=== PATIENT | male | born 1960 | race Caucasian/White ===

== ENCOUNTER → 2016-08-05 | Day surgery (SDC) | payer MEDICARE ==
[~2016-08-05] MED LIST: ACETAMINOPHEN/HYDROcodone 325 MG/5 MG TAB ONE; BUPIVACAINE/EPINEPHRINE 0.25% PF 30 ML VIAL ONE; KETOROLAC TROMETHAMINE 30 MG/ML (IVP) VIAL IV PUSH ONE; LACTATED RINGER'S 1,000 ML BAG IV ONE; LACTATED RINGER'S 1000 ML INJ 1,000 ML ONE; MEPERIDINE HCL 25 MG/ML VIAL ONE; MIDAZOLAM HCL 2 MG/2 ML VIAL ONE; NEOMYCIN/POLYMYXIN/BACITRACIN OINT 15 GM TUBE ONE; ONDA4TAB6 PO; ONDANSETRON HCL 4 MG/2 ML VIAL IV PUSH ONE; PROPOFOL 200 MG/20 ML AMP IV ONE; ceFAZolin 2 GM PREMIX 50 ML ONE
--- NOTE | 2016-08-05 12:57 | TN ---
cc: AYESHA LAM M.D. DATE OF SURGERY: 08/05/2016 PREOPERATIVE DIAGNOSIS Acutely symptomatic left inguinal hernia, asymptomatic umbilical hernia. POSTOPERATIVE DIAGNOSIS Acute left indirect inguinal hernia, left spermatic cord lipoma, umbilical hernia. PROCEDURE Laparoscopic repair left inguinal hernia with mesh, open repair umbilical hernia. SURGEON Dr. Ayesha Lam. ANESTHESIA General. INDICATIONS This is a pleasant 55-year-old gentleman who traveled down from [place] to help care for his mother who is going to have surgery soon, when lifting a case of water and a 12 pack of soda and twisting he developed acute left groin pain. He was seen in the office and recommendations were made for repair. Incidentally discovered umbilical hernia was encountered and he wished to have that fixed at the same time. INTRAOPERATIVE FINDINGS Left indirect inguinal hernia, left spermatic cord lipoma, umbilical hernia. ESTIMATED BLOOD LOSS Less than 20 mL. DESCRIPTION OF PROCEDURE IN DETAIL The patient was identified as Kwadwo Vaz. He was taken to the operating room and placed in the supine position. Sequential compression devices were placed on bilateral lower extremities. Following induction of adequate general anesthesia the patient's lower abdomen was prepped and draped in usual sterile fashion with Betadine. A time-out procedure was performed. Following completion of time-out procedure to everyone's satisfaction within the room 0.25% Marcaine with epinephrine was placed at each incision site. Infraumbilical small transverse incision was carried out with a scalpel and hemostasis was controlled with electrocautery. Dissection continued superiorly and posteriorly lifting the umbilical skin off herniated preperitoneal fatty tissue through the umbilical hernia defect. The fascia was cleared circumferentially with electrocautery. The anterior rectus fascia on the left side was identified, incised at its medial border with scalpel and a preperitoneal plane was developed with the surgeon's finger directed towards the pubic symphysis. With the patient in slight Trendelenburg position under direct laparoscopic view the preperitoneal dissecting balloon was inflated to a total of approximately 30 pumps which allowed for identification of the inferior epigastric vessels and the left side Marco Antonio's ligament. The balloon was desufflated, removed and the structural balloon trocar placed in the preperitoneal space, its balloon inflated with C02 insufflation until a level of 11 mmHg ensued. Two infraumbilical midline 5 mm trocars were placed in preperitoneal space under direct laparoscopic view after incision of skin with a scalpel. Attention was turned to identification of normal anatomic structures. Unfortunately with the balloon dissection the left inferior epigastric vessels had been pulled away from the anterior abdominal wall and were hanging down. This had to be managed throughout the case in order to be able to visualize the anatomy. This was performed, it took a little bit longer. He was fairly oozy throughout the case. No active hemorrhage from anywhere, just ooze. The Marco Antonio's ligament and pubic symphysis was identified. The blunt dissection lateral and posterior to the spermatic cord was able to be performed with the blunt graspers. The anteromedial surface of the spermatic cord was examined. There is an obvious indirect inguinal hernia sac and edema associated with it. It was reduced to the base of the spermatic cord. In doing so a small defect in the hernia sac was closed with 0-PDS Endoloop. Posterolaterally a spermatic cord lipoma was identified and withdrawn from the inguinal canal into the preperitoneal space using blunt graspers. A 4 x 6 inch piece of atrium ProLite mesh was then cut with anterolateral slit placed surrounding the spermatic cord and tacked in position with the pro-tack device. A single tack was used to approximate the anterolateral slit lateral to the inferior gastric vessels. Two tacks were placed into the anterior Marco Antonio's ligament, one tack medial superior, one tack lateral superior of mesh. A 2 x 6 inch piece of the mesh was then placed overlying the anterolateral slit and held in position with a single tack superolaterally, a tack inferior medially on the anterior border of Marco Antonio's ligament, one tack superior medially. Photographs were taken of completed repair. Remaining local anesthetic was placed in preperitoneal space. Trocars were removed under direct visualization and during desufflation the grasper was used to hold the mesh down against the abdominal wall inferior laterally so that the peritoneum and preperitoneal fatty tissue would lay on top of the mesh. There was no evidence of bleeding from trocar sites. The preperitoneal space was desufflated through the infraumbilical port, was then removed. The anterior rectus fascial incision was closed with running 2-0 Vicryl suture. The umbilical hernia defect was closed with interrupted inverted 0 Prolene sutures. The umbilicus was reformed with 2-0 Vicryl. The wounds were irrigated with saline. There was no evidence of bleeding. The skin incisions were closed with 4-0 Monocryl subcuticular sutures. Dressings were applied, Mastisol, half-inch brown Steri-Strips, gauze and Tegaderm were placed over the umbilicus. The patient tolerated the procedure without apparent complication. Sponge, needle and instrument counts were correct at the end of the case. MD JERROD Wilson/KINGSLEY /12:31 PM /12:42 PM
== END | disposition home or self-care (01) ==
LOC: ESDC 09:21
PROVIDERS: ATTEND Surgery Trauma Surgery
DX: K40.90 Unilateral inguinal hernia, without obstruction or gangrene, not specified as recurrent (principal); K42.9 Umbilical hernia without obstruction or gangrene; D17.6 Benign lipomatous neoplasm of spermatic cord
CPT/HCPCS: 00750; 00840; 49585; 49650; C1727; C1781; J0690; J1885; J2175; J2250; J2405; J3010; J7120

== ENCOUNTER 2016-08-09 14:42 | Observation (INO) | payer MEDICARE ==
[~2016-08-09] VITALS: Ht 185.4 cm; Wt 90.0 kg
[2016-08-09 14:43] VITALS: BP 146/98; PULSE 119; RESP 16; TEMP 98.4; O2SAT 92
[2016-08-09 15:23] VITALS: O2SAT 99
[2016-08-09 15:29] VITALS: BP 156/101; PULSE 103; RESP 15; O2SAT 97
[2016-08-09] MEDS ORDERED: SODIUM CHLOR 0.9% 1000 ML INJ 1,000 ML IV SCH (15:29)
--- NOTE | 2016-08-09 15:29 | PD ---
HPI Chief Complaint: GI Complaint Time Seen by Provider: 15:19 Travel History International Travel<30 days: No Contact w/Intl Traveler<30days: No Traveled to known affect area: No History of Present Illness HPI 55-year-old male with PMH of hepatitis B, laparoscopic left inguinal hernia repair with mesh and open umbilical hernia repair on 08/05/[address] Grimm presents to the ED for evaluation of 3 day history of abdominal pain, bloating, constipation. Patient states last BM was 08/05, prior to surgery. He endorses normal appetite until 08/08. He states he was taking narcotic pain medications until 08/08 as well. Since then he has had decreased appetite, nausea, bilious vomiting. PFSH Past Medical History Cirrhosis: Yes (HEP B) Social History Tobacco Use: Yes (former) Allergies-Medications (Allergen,Severity, Reaction): Coded Allergies: Sulfa (Verified Allergy, Unknown, DIFFICULTY BREATHING, 08/09/16) Reported Meds & Prescriptions Reported Meds & Active Scripts Active No Active Prescriptions or Reported Medications Review of Systems Except as stated in HPI: all other systems reviewed are Neg Physical Exam Narrative GENERAL: Well-nourished, well-developed white male, visibly distressed. SKIN: Warm and dry. HEAD: Normocephalic. EYES: No scleral icterus. No injection or drainage. NECK: Supple, trachea midline. No JVD or lymphadenopathy. CARDIOVASCULAR: Regular rate and rhythm without murmurs, gallops, or rubs. RESPIRATORY: Breath sounds clear and equal bilaterally. No accessory muscle use. GASTROINTESTINAL: Abdomen distended, diffusely tender. Absent bowel sounds. Dressing in place over the umbilicus. Old lower quadrant ecchymosis. MUSCULOSKELETAL: No cyanosis, or edema. BACK: Nontender without obvious deformity. No CVA tenderness. Data Data Last Documented VS Vital Signs Date Time Temp Pulse Resp B/P Pulse Ox O2 Delivery O2 Flow Rate FiO2 08/09/16 17:00 102 16 157/91 100 Room Air 08/09/16 14:43 98.4 Orders Complete Blood Count With Diff (08/09/16 15:29) Comprehensive Metabolic Panel (08/09/16 15:29) Lipase (08/09/16 15:29) Lactic Acid (08/09/16 15:29) Prothrombin Time / Inr (Pt) (08/09/16 15:29) Act Partial Throm Time (Ptt) (08/09/16 15:29) Urinalysis - C+S If Indicated (08/09/16 15:29) Ct Abd/Pel W Iv Contrast(Rout) (08/09/16 15:29) Iv Access Insert/Monitor (08/09/16 15:29) Ecg Monitoring (08/09/16 15:29) Oximetry (08/09/16 15:29) Ondansetron Inj (Zofran Inj) (08/09/16 15:30) Sodium Chlor 0.9% 1000 Ml Inj (Ns 1000 M (08/09/16 15:29) Sodium Chloride 0.9% Flush (Ns Flush) (08/09/16 15:30) Hydromorphone Pf Inj (Dilaudid Pf Inj) (08/09/16 15:30) Iohexol 350 Inj (Omnipaque 350 Inj) (08/09/16 16:05) Type And Screen (08/09/16 16:15) Promethazine Inj (Phenergan Inj) (08/09/16 17:15) Admit Order (Ed Use Only) (08/09/16 17:26) Insert Ng Tube (08/09/16 17:27) Labs Laboratory Tests Test 08/09/16 08/09/16 15:35 16:20 White Blood Count 7.5 TH/MM3 Red Blood Count 4.12 MIL/MM3 Hemoglobin 13.6 GM/DL Hematocrit 38.8 % Mean Corpuscular Volume 94.4 FL Mean Corpuscular Hemoglobin 33.0 PG Mean Corpuscular Hemoglobin 35.0 % Concent Red Cell Distribution Width 15.4 % Platelet Count 180 TH/MM3 Mean Platelet Volume 8.5 FL Neutrophils (%) (Auto) 76.2 % Lymphocytes (%) (Auto) 11.5 % Monocytes (%) (Auto) 11.6 % Eosinophils (%) (Auto) 0.6 % Basophils (%) (Auto) 0.1 % Neutrophils # (Auto) 5.7 TH/MM3 Lymphocytes # (Auto) 0.9 TH/MM3 Monocytes # (Auto) 0.9 TH/MM3 Eosinophils # (Auto) 0.0 TH/MM3 Basophils # (Auto) 0.0 TH/MM3 CBC Comment DIFF FINAL Differential Comment Prothrombin Time 13.6 SEC Prothromb Time International 1.2 RATIO Ratio Activated Partial 28.4 SEC Thromboplast Time Sodium Level 133 MEQ/L Potassium Level 3.6 MEQ/L Chloride Level 103 MEQ/L Carbon Dioxide Level 22.4 MEQ/L Anion Gap 8 MEQ/L Blood Urea Nitrogen 13 MG/DL Creatinine 0.77 MG/DL Estimat Glomerular Filtration 106 ML/MIN Rate Random Glucose 93 MG/DL Lactic Acid Level 2.7 mmol/L Calcium Level 8.8 MG/DL Total Bilirubin 2.2 MG/DL Aspartate Amino Transf 29 U/L (AST/SGOT) Alanine Aminotransferase 21 U/L (ALT/SGPT) Alkaline Phosphatase 82 U/L Total Protein 7.8 GM/DL Albumin 2.8 GM/DL Lipase 81 U/L Blood Type O POSITIVE Antibody Screen NEGATIVE Blood Bank Comment MDM Medical Decision Making Medical Screen Exam Complete: Yes Emergency Medical Condition: Yes Differential Diagnosis Postoperative ileus versus bowel obstruction versus narcotic-induced ileus versus free air versus other other Narrative Course 55-year-old male with PMH of hep B, laparoscopic left inguinal hernia repair with mesh and open umbilical hernia repair on 08/05/[address] Grimm presents to the ED for evaluation of 3 day history of abdominal pain, bloating, constipation. Patient states last BM was 08/05, prior to surgery. He endorses normal appetite until 08/07. Since then he has had decreased appetite, nausea, bilious vomiting. He took a few doses of MiraLAX with no improvement of the pain or BM. He denies passing gas. Last took narcotic pain medications on . Denies dysuria, hematuria. Vitals reviewed. Patient is afebrile, tachycardic and hypertensive on presentation. On physical exam he is visibly uncomfortable. The abdomen is distended, diffusely tender, bowel sounds are absent. IV was established. Patient was placed on continuous monitoring. Type and screen was ordered. He was administered a liter of normal saline, IV Zofran and Dilaudid. He was expedited to the CT scanner. CBC: WBC 7.5. Hemoglobin 13.6. CMP: Bilirubin 2.2 INR 1.2 Lipase: 81 Lactate: 2.7 UA: Pending CT abdomen and pelvis: 1. Small amount of free air which most likely is secondary to the recent surgery. 2. Right inguinal hernia which contains a small amount of gas which could be free air or represent air in a bowel loop. The bowel gas pattern is mildly nonspecific but appears nonobstructive. 3. Cirrhotic liver with moderate ascites. 4. Mild splenomegaly with multiple varices. 5. Small bilateral pleural effusions. Dr. Breen is covering for Dr. Grimm. Dr. Breen requests that we admit the patient to medicine, control his pain and attempt to move his bowels. He'll see the patient tomorrow morning. I spoke with Dr. Corado who agrees to accept the patient to the medical service. Patient is ordered nothing by mouth , NG tube ordered. Please medicine and surgery notes for disposition. Sepsis Criteria SIRS Criteria (2 or more): Heart rate over 90 Diagnosis Primary Impression: Postoperative abdominal pain Additional Impressions: Postoperative ileus Lactic acidosis Hyperbilirubinemia Scripts No Active Prescriptions or Reported Meds Lizbet Martell Aug 09, 2016 15:28
[2016-08-09] MEDS ORDERED: HYDROmorphone HCL PF 1 MG/ML VIAL IVS ONE (15:30)
[2016-08-09] MEDS ORDERED: SODIUM CHLORIDE 0.9% FLUSH 5 ML FLUSH IVF PRN (15:30)
[2016-08-09] MEDS ORDERED: ONDANSETRON HCL 4 MG/2 ML VIAL IVP ONE (15:30)
[2016-08-09] MEDS ORDERED: IOHEXOL 350 MG/ML 10 ML VIAL (for RAD DIAG) IV ONE (16:05)
[2016-08-09 16:15] LABS: AUTOMATED NEUTROPHIL # 5.7 TH/MM3 (1.8-7.7); BASOPHIL % 0.1 % (0.0-2.0); EOSINOPHIL % 0.6 % (0.0-4.0); HEMATOCRIT 38.8 % (39.0-51.0); HEMO FLAGS DIFF FINAL; LYMPH % 11.5 % (9.0-44.0); LYMPHOCYTE # 0.9 TH/MM3 (1.0-4.8); MEAN CELL VOLUME 94.4 FL (80.0-100.0); MONO % 11.6 % (0.0-8.0); NEUT % 76.2 % (16.0-70.0); PLATELET COUNT 180 TH/MM3 (150-450); RED BLOOD COUNT 4.12 MIL/MM3 (4.50-5.90); RED CELL DISTRIBUTION WIDTH 15.4 % (11.6-17.2); WHITE BLOOD COUNT 7.5 TH/MM3 (4.0-11.0)
[2016-08-09 16:25] LABS: APTT (PATIENT) 28.4 SEC (24.3-30.1); INTERNATIONAL NORMALIZED RATIO 1.2 RATIO; PROTHROMBIN TIME - PATIENT 13.6 SEC (9.8-11.6)
[2016-08-09 16:31] LABS: ALT (GPT) 21 U/L (12-78); ANION GAP 8 MEQ/L (5-15); AST (GOT) 29 U/L (15-37); BICARBONATE 22.4 MEQ/L (21.0-32.0); CHLORIDE 103 MEQ/L (98-107); POTASSIUM 3.6 MEQ/L (3.5-5.1); SODIUM (NA) 133 MEQ/L (136-145)
[2016-08-09 16:42] LABS: ALKALINE PHOSPHATASE 82 U/L (45-117); BLOOD UREA NITROGEN 13 MG/DL (7-18); GLOMERULAR FILTRATION RATE 106 ML/MIN (>89); TOTAL BILIRUBIN ADULT 2.2 MG/DL (0.2-1.0)
--- NOTE | 2016-08-09 16:54 | RADRPT ---
EXAM DATE/TIME: 08/09/2016 15:53 [facility] COMPARISON: No previous studies available for comparison. INDICATIONS : Severe pain and vomiting post operative hernia repair four days ago. IV CONTRAST: 75 cc Omnipaque 350 (iohexol) IV ORAL CONTRAST: No oral contrast ingested. RADIATION DOSE: 15.03 CTDIvol (mGy) MEDICAL HISTORY : None SURGICAL HISTORY : Hernia repair ENCOUNTER: Initial ACUITY: 3 days PAIN SCALE: 10/10 LOCATION: Bilateral abdomen. TECHNIQUE: Volumetric scanning of the abdomen and pelvis was performed. Using automated exposure control and ad justment of the mA and/or kV according to patient size, radiation dose was kept as low as reasonably achievable to obtain optimal diagnostic quality images. FINDINGS: LOWER LUNGS: There are small bilateral pleural effusions right greater than left. There is mild consolidation in t he right lower lobe with several air bronchograms. LIVER: Liver is cirrhotic in appearance with nodular outer contour and mild heterogeneity. There is a modera te amount of surrounding ascitic fluid. There is no focal mass or ductal dilatation. The gallbladder appears unremarkable. SPLEEN: There is mild splenomegaly with surrounding ascitic fluid. There is no focal mass. There are multiple adjacent varices. PANCREAS: Within normal limits. KIDNEYS: Normal in size and shape. There is no mass, stone or hydronephrosis. ADRENAL GLANDS: Within normal limits. VASCULAR: There is no aortic aneurysm. BOWEL/MESENTERY: There is a small amount of free air along the anterior abdominal wall musculature. There are multiple loops nondilated air-containing small bowel with several small air-fluid levels. The cystic fluid is noted and there is ABDOMINAL WALL: Within normal limits. RETROPERITONEUM: There is no lymphadenopathy. BLADDER: No wall thickening or mass. REPRODUCTIVE: Within normal limits. INGUINAL: There is a right inguinal hernia. There is a small gas collection consistent with a loop of bowel. Th ere are postsurgical changes in the left inguinal region consistent with recent hernia repair. There is mild inflammatory change in this region. MUSCULOSKELETAL: Within normal limits for patient age. CONCLUSION: 1. Small amount of free air which most likely is secondary to the recent surgery. 2. Right inguinal hernia which contains a small amount of gas which could be free air or represent ai r in a bowel loop. The bowel gas pattern is mildly nonspecific but appears nonobstructive. 3. Cirrhotic liver with moderate ascites. 4. Mild splenomegaly with multiple varices. 5. Small bilateral pleural effusions. Braxton Grande MD on August 09, 2016 at 16:04 Board Certified Radiologist. This report was verified electronically.
[2016-08-09 17:00] VITALS: BP 157/91; PULSE 102; RESP 16; O2SAT 100
[2016-08-09] MEDS ORDERED: PROMETHAZINE INJ 25 MG/ML VIAL IM ONE (17:15)
[2016-08-09] MEDS ORDERED: SODIUM CHLOR 0.9% 1000 ML INJ 1,000 ML IV ONE (17:45)
[2016-08-09 18:16] LABS: BACTERIA, URINE RARE /hpf; BLOOD, URINE NEG (NEG); COMMENT (UR) CULT NOT INDICATED; CULTURE IF INDICATED CULT NOT INDICATED; GLUCOSE,URINE NEG (NEG); KETONE, URINE NEG (NEG); MUCUS URINE FEW /lpf (OCC); NITRITE,URINE NEG (NEG); PH, URINE 7.5 (5.0-8.5); URINE COLOR YELLOW (YELLW/STRAW)
[2016-08-09] MEDS ORDERED: HYDROmorphone HCL PF 1 MG/ML VIAL IV PUSH PRN (19:00)
[2016-08-09] MEDS ORDERED: ONDANSETRON HCL 4 MG/2 ML VIAL IV PUSH PRN (19:00)
[2016-08-09 19:13] VITALS: BP 131/84; PULSE 99; RESP 17; O2SAT 100
--- NOTE | 2016-08-09 19:13 | HHI.HP ---
[facility] Physician No Primary Care Physician Admission Diagnosis postoperative abdominal pain, postoperative ileus, lactic acidosis Diagnoses: Chief Complaint: Nausea , vomiting Travel History International Travel<30 Days: No Contact w/Intl Traveler <30 Da: No Traveled to Known Affected Are: No History of Present Illness Patient is a 55-year-old male with known history of liver disease secondary to hepatitis B who recently last August 05 had laparoscopic left inguinal hernia repair and open umbilical hernia repair with mesh. Patient states that since yesterday has been complete uncomfortable with diffuse abdominal pain, vomiting whole day yesterday bid use. States has had no bowel movement for the past 5 days. He has been taking Vicodin when necessary for pain regularly. Finally came to the ER and admitted for further evaluation. Since admission to the ER has had no episodes of vomiting. NG tube ordered but patient refused to have it placed. Review of Systems Constitutional: DENIES: Diaphoretic episodes, Fatigue, Fever, Weight gain, Weight loss, Chills, Dizziness, Change in appetite, Night Sweats Endocrine: DENIES: Heat/cold intolerance, Polydipsia, Polyuria, Polyphagia Eyes: DENIES: Blurred vision, Diplopia, Eye inflammation, Eye pain, Vision loss , Photosensitivity, Double Vision Ears, nose, mouth, throat: DENIES: Tinnitus, Hearing loss, Vertigo, Nasal discharge, Oral lesions, Throat pain, Hoarseness, Ear Pain, Running Nose, Epistaxis, Sinus Pain, Toothache, Odynophagia Respiratory: DENIES: Apneas, Cough, Snoring, Wheezing, Hemoptysis, Sputum production, Shortness of breath Cardiovascular: DENIES: Chest pain, Palpitations, Syncope, Dyspnea on Exertion , PND, Lower Extremity Edema, Orthopnea, Claudication Gastrointestinal: COMPLAINS OF: Abdominal pain (reason for admission) Genitourinary: DENIES: Sexual dysfunction, Urinary frequency, Urinary incontinence, Urgency, Hematuria, Dysuria, Nocturia, Penile Discharge, Testicular Pain, Testicular Swelling Integumentary: DENIES: Abnormal pigmentation, Nail changes, Pruritus, Rash Hematologic/lymphatic: DENIES: Bruising, Lymphadenopathy Immunologic/allergic: DENIES: Eczema, Urticaria Neurologic: DENIES: Abnormal gait, Headache, Localized weakness, Paresthesias, Seizures, Speech Problems, Tremor, Poor Balance Psychiatric: DENIES: Anxiety, Confusion, Mood changes, Depression, Hallucinations, Agitation, Suicidal Ideation, Homicidal Ideation, Delusions Past Family Social History Past Medical History 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 Denies any history of hypertension heart disease and CVA Past Surgical History 08/05 - laparoscopic left inguinal hernia repair, open umbilical hernia repair with mesh Reported Medications Vicodin when necessary for pain Allergies: Coded Allergies: Sulfa (Verified Allergy, Unknown, DIFFICULTY BREATHING, 08/09/16) Family History Noncontributory Social History History of smoking quit 20 years ago Denies alcohol or substance abuse Physical Exam Vital Signs Vital Signs Date Time Temp Pulse Resp B/P Pulse Ox O2 Delivery O2 Flow Rate FiO2 08/09/16 17:00 102 16 157/91 100 Room Air 08/09/16 15:29 103 15 156/101 97 Room Air 08/09/16 15:23 16 08/09/16 15:23 99 Room Air 08/09/16 14:43 98.4 119 16 146/98 92 Room Air Physical Exam GENERAL: in no apparent distress. SKIN: No rashes, ecchymoses or lesions. Cool and dry. HEAD: Atraumatic. Normocephalic. No temporal or scalp tenderness. EYES: Pupils equal round and reactive. Extraocular motions intact. No scleral icterus. No injection or drainage. ENT: Nose without bleeding, purulent drainage or septal hematoma. Throat without erythema, tonsillar hypertrophy or exudate. Uvula midline. Airway patent. NECK: Trachea midline. No JVD or lymphadenopathy. Supple, nontender, no meningeal signs. CARDIOVASCULAR: Regular rate and rhythm without murmurs, gallops, or rubs. RESPIRATORY: Clear to auscultation. Breath sounds equal bilaterally. No wheezes , rales, or rhonchi. GASTROINTESTINAL: Abdomen soft, positive bowel sounds, postop dressing umbilical area, tenderness to palpation of the whole abdomen mostly on the lower abdominal area MUSCULOSKELETAL: Extremities without clubbing, cyanosis, or edema. No joint tenderness, effusion, or edema noted. No calf tenderness. Negative Homans sign bilaterally. NEUROLOGICAL: Awake and alert. Cranial nerves II through XII intact. Motor and sensory grossly within normal limits. Five out of 5 muscle strength in all muscle groups. Normal speech. Laboratory Laboratory Tests Test 08/09/16 08/09/16 08/09/16 15:35 16:20 17:50 White Blood Count 7.5 Red Blood Count 4.12 Hemoglobin 13.6 Hematocrit 38.8 Mean Corpuscular Volume 94.4 Mean Corpuscular Hemoglobin 33.0 Mean Corpuscular Hemoglobin 35.0 Concent Red Cell Distribution Width 15.4 Platelet Count 180 Mean Platelet Volume 8.5 Neutrophils (%) (Auto) 76.2 Lymphocytes (%) (Auto) 11.5 Monocytes (%) (Auto) 11.6 Eosinophils (%) (Auto) 0.6 Basophils (%) (Auto) 0.1 Neutrophils # (Auto) 5.7 Lymphocytes # (Auto) 0.9 Monocytes # (Auto) 0.9 Eosinophils # (Auto) 0.0 Basophils # (Auto) 0.0 CBC Comment DIFF FINAL Differential Comment Prothrombin Time 13.6 Prothromb Time International 1.2 Ratio Activated Partial 28.4 Thromboplast Time Sodium Level 133 Potassium Level 3.6 Chloride Level 103 Carbon Dioxide Level 22.4 Anion Gap 8 Blood Urea Nitrogen 13 Creatinine 0.77 Estimat Glomerular Filtration 106 Rate Random Glucose 93 Lactic Acid Level 2.7 Calcium Level 8.8 Total Bilirubin 2.2 Aspartate Amino Transf 29 (AST/SGOT) Alanine Aminotransferase 21 (ALT/SGPT) Alkaline Phosphatase 82 Total Protein 7.8 Albumin 2.8 Lipase 81 Blood Type O POSITIVE Antibody Screen NEGATIVE Blood Bank Comment Urine Color YELLOW Urine Turbidity CLEAR Urine pH 7.5 Urine Specific [place] 1.038 Urine Protein NEG Urine Glucose (UA) NEG Urine Ketones NEG Urine Occult Blood NEG Urine Nitrite NEG Urine Bilirubin NEG Urine Urobilinogen LESS THAN 2.0 Urine Leukocyte Esterase NEG Urine RBC LESS THAN 1 Urine WBC LESS THAN 1 Urine Bacteria RARE Urine Mucus FEW Microscopic Urinalysis Comment CULT NOT INDICATED Result Diagram: 08/09/16 1535 08/09/16 1535 Imaging Last Impressions Abdomen/Pelvis CT 08/09/16 1529 Signed Impressions: Service Date/Time: Tuesday, August 09, 2016 15:53 - CONCLUSION: 1. Small amount of free air which most likely is secondary to the recent surgery. 2. Right inguinal hernia which contains a small amount of gas which could be free air or represent air in a bowel loop. The bowel gas pattern is mildly nonspecific but appears nonobstructive. 3. Cirrhotic liver with moderate ascites. 4. Mild splenomegaly with multiple varices. 5. Small bilateral pleural effusions. Braxton Grande MD Septic Shock Reassessment Heart: Regular rate and rhythm Skin: Warm Peripheral Pulses: Bounding Right Radial Bounding Left Radial Bounding Right Popliteal Bounding Left Popliteal Bounding Right Dorsalis Pedis Bounding Left Dorsalis Pedis Bounding Right Posterior Tibial Bounding Left Posterior Tibial Capillary Refill: Brisk Assessment and Plan Assessment and Plan 55-year-old male presenting with Abdominal pain nausea vomiting with recent laparoscopic left inguinal hernia repair and umbilical hernia repair with mesh 08/05 Nothing by mouth Patient refused NG tube. Start patient on IV fluids with potassium incorporation Monitor bowel movements and abdominal exam Start PPI Gen. surgery consulted IV Dilaudid when necessary for pain CT of abdomen reviewed with Dr. Odonnell- radiology History of chronic liver disease with ascites secondary to hepatitis B patient with no signs of encephalopathy PPI Encourage increased activity Incentive spirometry hourly Physician Certification 2 Midnight Certification Type: Admission for Inpatient Services Order for Inpatient Services The services are ordered in accordance with Medicare regulations or non- Medicare payer requirements, as applicable. In the case of services not specified as inpatient-only, they are appropriately provided as inpatient services in accordance with the 2-midnight benchmark. Estimated LOS (days): 3 days is the estimated time the patient will need to remain in the hospital, assuming treatment plan goals are met and no additional complications. Post-Hospital Plan: Not yet determined Jessica Hoover MD Aug 09, 2016 19:13 Jessica Hoover MD Aug 09, 2016 19:13
[2016-08-09] MEDS: D5-NS + KCL 20 MEQ INJ 1,000 ML IV SCH (19:20)
[2016-08-09] MEDS ORDERED: PANTOPRAZOLE SODIUM 40 MG VIAL IV PUSH SCH (20:00)
[2016-08-09 23:55] VITALS: BP 118/80; PULSE 86; RESP 20; O2SAT 96
[2016-08-10 00:42] VITALS: BP 142/73; PULSE 77; RESP 18; TEMP 97.1; O2SAT 95
[2016-08-10] MEDS ORDERED: KETOROLAC TROMETHAMINE 30 MG/ML (IVP) VIAL IV PUSH ONE (00:45)
[2016-08-10 01:30] VITALS: O2SAT 95
[2016-08-10 05:48] VITALS: BP 105/60; PULSE 60; RESP 18; TEMP 98.2; O2SAT 93
[2016-08-10 07:34] LABS: ALKALINE PHOSPHATASE 62 U/L (45-117); ALT (GPT) 16 U/L (12-78); ANION GAP 6 MEQ/L (5-15); AST (GOT) 23 U/L (15-37); BICARBONATE 24.7 MEQ/L (21.0-32.0); BLOOD UREA NITROGEN 12 MG/DL (7-18); CHLORIDE 107 MEQ/L (98-107); GLOMERULAR FILTRATION RATE 124 ML/MIN (>89); POTASSIUM 3.8 MEQ/L (3.5-5.1); SODIUM (NA) 138 MEQ/L (136-145); TOTAL BILIRUBIN ADULT 1.5 MG/DL (0.2-1.0)
[2016-08-10 07:37] VITALS: BP 112/69; PULSE 67; RESP 22; TEMP 97.5; O2SAT 95
[2016-08-10] MEDS: D5-NS + KCL 20 MEQ INJ 1,000 ML IV SCH (08:51)
--- NOTE | 2016-08-10 10:06 | MB ---
cc: KRYSTLE GILMORE M.D. DATE OF CONSULTATION 08/10/2016 REASON FOR CONSULTATION [place] HISTORY This is a 55-year-old gentleman who underwent a laparoscopic left inguinal hernia repair and an umbilical hernia repair last week. He was doing fairly well, ate a fair amount and then started having abdominal cramping pain where he could not get up off the floor and he was brought to the emergency room evaluation included a CT scan and was found to have cirrhosis of the liver and ascites. They saw some air that was most likely secondary to the surgery, however, he had a persistent nausea and vomiting and for this reason, he is admitted for IV fluids and nausea control and some pain control. Surgery was consult consulted to aid in the management. PAST HISTORY Significant for: 1. His hernia surgery. 2. He has hepatitis B. 3. He used to smoke. REVIEW OF SYSTEMS No neurologic and difficulties. No respiratory or cardiovascular problems. No problems. SOCIAL HISTORY He is down here visiting in [facility]. ALLERGIES INCLUDE SULFA. MEDICATIONS Outpatient, he was on: He was on pain medicine but stopped a few days ago. PHYSICAL EXAM On physical exam, he is on laying in bed. He looks comfortable. NECK: Supple. CHEST: Clear. HEART: Regular rate. ABDOMEN: Obese, slightly sore due to the recent surgery. He has some ecchymosis around the umbilicus from his recent surgery. He has bowel sounds. He past some flatus. He has trocar sites that are well-healed. He has some swelling in his left groin, a little tenderness in the right groin. I do not appreciate a hernia, although he is laying flat. NEUROLOGIC: He is alert and oriented and apparently feels much better than when he came in yesterday evening. LABORATORY DATA Chem-19 is all essentially normal. LFTs showed a total bilirubin of 1.5 which is down from 2.2 yesterday. LFTs otherwise normal. White count of 7. Coags are normal. Urinalysis is clear. IMAGING STUDIES Shows some air around the recent surgical site. Apparently they see a right inguinal hernia. It may just be air that was used to do the surgery in the preperitoneal space. He has a cirrhotic liver with a moderate amount ascites, splenomegaly and bilateral pleural effusions. ASSESSMENT 1 55-year-old gentleman with known cirrhosis, hepatitis B, recent laparoscopic repair of left inguinal hernia. He had some air in the preperitoneal space that is not too unexpected. Clinically, he appears better. He is passing flatus. I will go ahead and get a KUB to be assured to see he does not have a more severe ileus. He is anxious to start some p.o. I anticipate him being discharge later on this afternoon as long she progresses. He already has a follow-up appointment with Dr. Grimm his surgeon on of this week. MD OSWALDO Ta/KEHINDE /8:48 AM /9:51 AM
--- NOTE | 2016-08-10 10:31 | RADRPT ---
EXAM DATE/TIME: 08/10/2016 09:04 [facility] COMPARISON: No previous studies available for comparison. INDICATIONS : Left side abdomen pain and constipation, post op umbilical hernia repair 4 days. MEDICAL HISTORY : None. SURGICAL HISTORY : Umbilical hernia repair. ENCOUNTER: Initial ACUITY: 1 day PAIN SCORE: 0/10 LOCATION: Left upper quadrant and lower quadrant abdomen FINDINGS: Supine view of the abdomen was performed. The abdominal bowel gas pattern is normal. No abnormal ma sses, calcifications, or organomegaly is seen. The osseous structures are unremarkable. There are carr rgical clips projected over the pelvis and left hip. CONCLUSION: Unremarkable bowel gas pattern. Braxton Grande MD on August 10, 2016 at 10:29 Board Certified Radiologist. This report was verified electronically.
[2016-08-10 11:18] VITALS: BP 113/64; PULSE 73; RESP 22; TEMP 97.5; O2SAT 94
[2016-08-10] MEDS ORDERED: ACETAMINOPHEN/HYDROcodone 325 MG/5 MG TAB PO PRN (13:30)
[2016-08-10] MEDS ORDERED: ONDA4TAB6 PO (14:09)
--- NOTE | 2016-08-10 14:10 | HHI.PR ---
Subjective Remarks Follow-up for postoperative abdominal pain. The patient feels significantly improved today. Mother at bedside. The patient states that he had a bowel movement and has abdominal pain improved. He was able to eat breakfast with no nausea or vomiting. He denies any fevers or chills. He feels like he was constipated from the pain medication, and does not want to take any more. Objective Vitals Vital Signs Date Time Temp Pulse Resp B/P Pulse Ox O2 Delivery O2 Flow Rate FiO2 08/10/16 11:18 97.5 73 22 113/64 94 08/10/16 07:37 97.5 67 22 112/69 95 08/10/16 05:48 98.2 60 18 105/60 93 08/10/16 05:29 16 08/10/16 01:30 95 08/10/16 00:42 97.1 77 18 142/73 95 08/09/16 23:55 86 20 118/80 96 Room Air 08/09/16 19:13 99 17 131/84 100 Room Air 08/09/16 19:09 17 08/09/16 17:00 102 16 157/91 100 Room Air 08/09/16 15:29 103 15 156/101 97 Room Air 08/09/16 15:23 16 08/09/16 15:23 99 Room Air 08/09/16 14:43 98.4 119 16 146/98 92 Room Air Result Diagram: 08/09/16 1535 08/10/16 0629 Imaging Last Impressions Abdomen X-Ray 08/10/16 0000 Signed Impressions: Service Date/Time: Wednesday, August 10, 2016 09:04 - CONCLUSION: Unremarkable bowel gas pattern. Braxton Grande MD Abdomen/Pelvis CT 08/09/16 1529 Signed Impressions: Service Date/Time: Tuesday, August 09, 2016 15:53 - CONCLUSION: 1. Small amount of free air which most likely is secondary to the recent surgery. 2. Right inguinal hernia which contains a small amount of gas which could be free air or represent air in a bowel loop. The bowel gas pattern is mildly nonspecific but appears nonobstructive. 3. Cirrhotic liver with moderate ascites. 4. Mild splenomegaly with multiple varices. 5. Small bilateral pleural effusions. Braxton Grande MD Objective Remarks GENERAL: Well-developed well-nourished. In no acute distress. SKIN: Warm and dry. No lesions noted. HEENT: Normocephalic. Pupils equal and round. Mucous membranes pink and moist. CARDIOVASCULAR: Regular rate and rhythm. No murmur appreciated. RESPIRATORY: No accessory muscle use. Clear to auscultation. Breath sounds equal bilaterally. GASTROINTESTINAL: Abdomen soft, non-tender, nondistended. Bowel sounds x4. MUSCULOSKELETAL: No obvious deformities. No clubbing or cyanosis. No edema. NEUROLOGICAL: Awake and alert. No focal neurological deficits. Moves upper and lower extremities spontaneously. Normal speech. PSYCHIATRIC: Appropriate mood and affect; insight and judgment normal. A/P Assessment and Plan 54-year-old male with a history of recent inguinal hernia and umbilical hernia repair who presented with abdominal pain and vomiting Postoperative pain with vomiting: Suspect secondary to constipation and bowel dysmotility from recent immobility, anesthesia, and narcotics. Symptoms improved after BM. Repeat KUB with no signs of bowel obstruction. Seen by general surgery who recommended continuing outpatient follow-up appointment on . Advised patient to increase mobility and takes stool softeners with narcotics if taking. S/P IVF, diabetes tolerated. Continue antiemetics as needed. History of chronic liver disease with ascites secondary to hepatitis B: Stable. Outpatient follow-up. Written by hKalif Ortiz, acting as scribe for Dr. Mackey on 08/10/16 at 14:10. The documentation accurately reflects the work performed [id number] by me on at 1410. Discharge Planning Discharge patient to home Condition on discharge: Improved Heart healthy Diet as tolerated Regular activity Rx written: Thomas Follow-up with primary care physician and general surgery Khalif Ortiz Aug 10, 2016 2:10 pm Chalo Mackey DO Aug 10, 2016 4:46 pm
== END 2016-08-10 15:41 | disposition home or self-care (01) ==
LOC: NEPC 14:42 → NEDA 17:28 → INTOOBSV 17:28 → NEDH 22:06 → NEPHCDU 23:47 → UNDODISIN 08-10 15:41
PROVIDERS: ADMIT Hospitalist; ATTEND Hospitalist
DX: G89.18 Other acute postprocedural pain (principal); R10.9 Unspecified abdominal pain; K91.89 Other postprocedural complications and disorders of digestive system; I10 Essential (primary) hypertension; E11.9 Type 2 diabetes mellitus without complications; E87.2 Acidosis; B19.10 Unspecified viral hepatitis B without hepatic coma; K74.60 Unspecified cirrhosis of liver; R18.8 Other ascites; Z72.0 Tobacco use
CPT/HCPCS: 74000; 74177; 80053; 81001; 83605; 83690; 85025; 85610; 85730; 86850; 86900; 86901; 96361; 96374; 96375; 99285; C9113; G0378; J1170; J1885; J2405; J2550; J3480; J7030; Q9967

== ENCOUNTER 2017-07-08 08:18 | Day surgery (SDC) | payer MEDICARE ==
[~2017-07-08 08:18] MED LIST changes: -ACETAMINOPHEN/HYDROcodone 325 MG/5 MG TAB ONE; -BUPIVACAINE/EPINEPHRINE 0.25% PF 30 ML VIAL ONE; -KETOROLAC TROMETHAMINE 30 MG/ML (IVP) VIAL IV PUSH ONE; -LACTATED RINGER'S 1,000 ML BAG IV ONE; -LACTATED RINGER'S 1000 ML INJ 1,000 ML ONE; -MEPERIDINE HCL 25 MG/ML VIAL ONE; -MIDAZOLAM HCL 2 MG/2 ML VIAL ONE; -NEOMYCIN/POLYMYXIN/BACITRACIN OINT 15 GM TUBE ONE; -ONDANSETRON HCL 4 MG/2 ML VIAL IV PUSH ONE; -PROPOFOL 200 MG/20 ML AMP IV ONE; -ceFAZolin 2 GM PREMIX 50 ML ONE
[2017-07-08 08:54] LABS: AUTOMATED NEUTROPHIL # 3.4 TH/MM3 (1.8-7.7); BASOPHIL % 0.6 % (0.0-2.0); EOSINOPHIL # 0.1 TH/MM3 (0-0.4); HEMATOCRIT 35.9 % (39.0-51.0); HEMOGLOBIN 13.1 GM/DL (13.0-17.0); LYMPH % 16.2 % (9.0-44.0); LYMPHOCYTE # 0.8 TH/MM3 (1.0-4.8); MEAN CELL VOLUME 95.1 FL (80.0-100.0); MEAN CORPUSCULAR HEMOGLOBIN 34.7 PG (27.0-34.0); MONOCYTE # 0.4 TH/MM3 (0-0.9); NEUT % 73.2 % (16.0-70.0); PLATELET COUNT 175 TH/MM3 (150-450); RED BLOOD COUNT 3.78 MIL/MM3 (4.50-5.90); RED CELL DISTRIBUTION WIDTH 15.1 % (11.6-17.2); WHITE BLOOD COUNT 4.6 TH/MM3 (4.0-11.0)
[2017-07-08 08:58] LABS: MEAN CORPUSCULAR HGB CONC 36.5 % (32.0-36.0)
[2017-07-08 08:59] LABS: INTERNATIONAL NORMALIZED RATIO 1.1 RATIO; PROTHROMBIN TIME - PATIENT 11.6 SEC (9.8-11.6)
[2017-07-08 09:30] VITALS: BP 128/73; PULSE 81; RESP 14; TEMP 97.7; O2SAT 97
--- NOTE | 2017-07-08 10:11 | RADRPT ---
EXAM DATE/TIME: 07/08/2017 09:50 [facility] COMPARISON: No previous studies available for comparison. INDICATIONS : Ascites. MEDICAL HISTORY : Hepatitis B. HIV. Cirrhosis. Hypertension. CHF. IBS. SURGICAL HISTORY : TIPS. Hernia repair. ENCOUNTER: Initial ACUITY: > 1 year PAIN SCORE: 5/10 LOCATION: Abdomen. AREA EVALUATED: Abdominal quadrants. FINDINGS: Imaging of the abdomen and pelvis was performed to evaluate for ascites for possible paracentesis. T here is a [id number] volume of ascites present. Possible drainage pathways are somewhat obscur ed by multiple bowel in the all visualized quadrants. It is determined that referring drainage until there is additional accumulation of fluid would be safer. CONCLUSION: Small to moderate volume of ascites as above. Joe Carson MD on July 08, 2017 at 10:06 Board Certified Radiologist. This report was verified electronically.
== END 2017-07-08 15:00 | disposition home or self-care (01) ==
LOC: HRAD 08:18 → HRIP 08:34 → HRAD 15:00
DX: R18.8 Other ascites (principal); K74.69 Other cirrhosis of liver; Z21 Asymptomatic human immunodeficiency virus [HIV] infection status; B18.1 Chronic viral hepatitis B without delta-agent
CPT/HCPCS: 36415; 76705; 85025; 85610

== ENCOUNTER 2017-07-22 09:29 | Day surgery (SDC) | payer MEDICARE ==
[2017-07-22 11:55] VITALS: BP 121/76; PULSE 83; RESP 20; TEMP 97.8; O2SAT 97
[2017-07-22 12:05] VITALS: BP 119/73; PULSE 82; RESP 20; O2SAT 95
[2017-07-22] MEDS ORDERED: LIDOCAINE HCL 1% 20 ML VIAL ONE (12:32)
--- NOTE | 2017-07-22 13:04 | RADRPT ---
EXAM DATE/TIME: 07/22/2017 09:53 [facility] COMPARISON: No previous studies available for comparison. INDICATIONS : Ascites. MEDICAL HISTORY : Hepatitis B. HIV. Cirrhosis. Hypertension. CHF. IBS. SURGICAL HISTORY : Hernia repair. ENCOUNTER: Initial ACUITY: 1 day PAIN SCORE: 7/10 LOCATION: Left lower quadrant FLUID: Total volume of 4500 cc of clear, yellow fluid was removed. Fluid was discarded. Paracentesis was therapeutic only. Post procedure scanning reveals no hematoma or other complication. TECHNIQUE: 1. Ultrasound guidance for abdominal paracentesis. 2. Paracentesis. The risks, benefits, and alternatives to ultrasound guided paracentesis were explained to the patient in detail including the risk of bleeding and infection. Written and verbal informed consent was obt ained. With the patient on the ultrasound table, ultrasound imaging was used to select the most appropriate approach for paracentesis. Overlying skin was prepped and draped in the usual sterile fashion and wi th a local anesthetic, a dermatotomy was made with an 11 blade scalpel. A 6 [place] [id number] ca theter was introduced into the peritoneal cavity and fluid was collected. The patient tolerated the procedure well and left the ultrasound suite in stable condition. CONCLUSION: Uncomplicated ultrasound guided paracentesis. Kwadwo Vaz Jr., MD on July 22, 2017 at 13:01 Board Certified Radiologist. This report was verified electronically.
== END 2017-07-22 12:20 | disposition home or self-care (01) ==
LOC: HRAD 09:29 → HRIP 09:33 → HRAD 12:20
DX: R18.8 Other ascites (principal); K74.60 Unspecified cirrhosis of liver; B18.1 Chronic viral hepatitis B without delta-agent; I50.9 Heart failure, unspecified; Z21 Asymptomatic human immunodeficiency virus [HIV] infection status
CPT/HCPCS: 49083; C1729

== ENCOUNTER → 2017-09-02 | Outpatient (CLI) | payer MEDICARE ==
[2017-09-02 14:49] LABS: INTERNATIONAL NORMALIZED RATIO 1.2 RATIO; PROTHROMBIN TIME - PATIENT 11.7 SEC (9.8-11.6)
[2017-09-02 14:57] LABS: AUTOMATED NEUTROPHIL # 6.3 TH/MM3 (1.8-7.7); BASOPHIL # 0.4 TH/MM3 (0-0.2); BASOPHIL % 5.3 % (0.0-2.0); EOSINOPHIL # 0.1 TH/MM3 (0-0.4); EOSINOPHIL % 1.1 % (0.0-4.0); LYMPH % 4.3 % (9.0-44.0); LYMPHOCYTE # 0.3 TH/MM3 (1.0-4.8); MEAN CELL VOLUME 94.2 FL (80.0-100.0); MEAN PLATELET VOLUME 7.2 FL (7.0-11.0); MONO % 5.1 % (0.0-8.0); MONOCYTE # 0.4 TH/MM3 (0-0.9); NEUT % 84.2 % (16.0-70.0); PLATELET COUNT 236 TH/MM3 (150-450); RED BLOOD COUNT 3.72 MIL/MM3 (4.50-5.90); RED CELL DISTRIBUTION WIDTH 15.4 % (11.6-17.2); WHITE BLOOD COUNT 7.5 TH/MM3 (4.0-11.0)
[2017-09-02 15:12] LABS: MEAN CORPUSCULAR HGB CONC 37.1 % (32.0-36.0)
[2017-09-02 16:05] LABS: BANDS 7 % (0-6); LYMPHOCYTES 9 % (9-44); MONOCYTES 2 % (0-8); NEUTROPHIL # MANUAL DIFF 6.7 TH/MM3 (1.8-7.7); POLYS (SEG NEUTROPHILS) 82 % (16-70)
== END ==
LOC: CLAB 14:05
DX: K74.69 Other cirrhosis of liver (principal); R18.8 Other ascites; Z21 Asymptomatic human immunodeficiency virus [HIV] infection status; B18.1 Chronic viral hepatitis B without delta-agent
CPT/HCPCS: 36415; 85007; 85027; 85610

== ENCOUNTER 2017-09-06 13:03 | Day surgery (SDC) | payer MEDICARE ==
[2017-09-06] MEDS ORDERED: LIDOCAINE HCL 1% 20 ML VIAL ONE ×2 (15:18→16:14)
[2017-09-06] MEDS ORDERED: ALBUMIN 25% INJ 0 ML IV ONE (15:30)
[2017-09-06 16:00] VITALS: BP 160/83; PULSE 70; RESP 20; TEMP 97.3; O2SAT 97
[2017-09-06 16:15] VITALS: BP 136/74; PULSE 87; RESP 20; O2SAT 97
--- NOTE | 2017-09-06 16:47 | RADRPT ---
EXAM DATE/TIME: 09/06/2017 13:56 [facility] COMPARISON: US GUIDED ABD PARACENTESIS, July 22, 2017, 9:53. INDICATIONS : Ascites. MEDICAL HISTORY : Hepatitis B. HIV. Cirrhosis. Hypertension. CHF. IBS. SURGICAL HISTORY : Hernia repair. ENCOUNTER: Subsequent ACUITY: 2 months PAIN SCORE: 2/10 LOCATION: Left lower quadrant FLUID: Total volume of 4800 cc of clear, yellow fluid was removed. Fluid was discarded. Paracentesis was therapeutic only. Post procedure scanning reveals no hematoma or other complication. TECHNIQUE: 1. Ultrasound guidance for abdominal paracentesis. 2. Paracentesis. The risks, benefits, and alternatives to ultrasound guided paracentesis were explained to the patient in detail including the risk of bleeding and infection. Written and verbal informed consent was obt ained. With the patient on the ultrasound table, ultrasound imaging was used to select the most appropriate approach for paracentesis. Overlying skin was prepped and draped in the usual sterile fashion and wi th a local anesthetic, a dermatotomy was made with an 11 blade scalpel. A 6 [place] [id number] ca theter was introduced into the peritoneal cavity and fluid was collected. The patient tolerated the procedure well and left the ultrasound suite in stable condition. CONCLUSION: Uncomplicated ultrasound guided paracentesis. Josep Earl MD on September 06, 2017 at 16:45 Board Certified Radiologist. This report was verified electronically.
== END 2017-09-06 16:21 | disposition home or self-care (01) ==
LOC: HRAD 13:03 → HRIP 13:08 → HRAD 16:21
PROVIDERS: ATTEND Neuromusculoskeletal Medicine & OMM
DX: R18.8 Other ascites (principal)
CPT/HCPCS: 49083; C1729